=== PATIENT | female | born 1950 | race Two or more races ===

== ENCOUNTER → 2019-05-10 | Outpatient (CLI) | payer MEDICARE ==
[~2019-05-10] MED LIST: BUPIVACAINE MPF 0.5% 10 ML VIAL for KCIC. IJ ONE; IOHEXOL 300 MG/ML 50 ML VIAL. INT ART ONE; LIDOCAINE 1% Multi-Dose 20 ML VIAL. ID ONE; methylPREDNISolone ACETATE 40 MG/ML VIAL. INT ART ONE
--- NOTE | 2019-05-10 16:09 | KCIC ---
PROCEDURE Therapeutic left hip injection using fluoroscopic guidance. HISTORY Chronic left hip pain. Osteoarthritis. TECHNIQUE The procedure was explained to the patient as were potential risks, including infection, bleeding or allergic reaction. All questions were answered. Informed written and verbal consent was obtained. The hip was prepped and draped in the usual sterile manner. Following administration of local anesthetic, a 22-gauge spinal needle was advanced into the hip joint without difficulty, with care taken to avoid the vascular structures. Stylet was removed and following negative aspiration, a mixture of 4 cc Omnipaque-300, 2 cc (80 mg) Depo-Medrol, 4 cc bupivacaine and 4 cc 1% lidocaine were injected without difficulty. Fluoroscopy demonstrates uniform and satisfactory distribution of the injection through the hip. The needle was removed. There was good hemostasis at the injection site. The patient left in stable condition without immediate complication. Patient was advised as to potential postprocedural complications and advised to contact their physician in such event. A single spot image was obtained. FLUOROSCOPY TIME: 44 seconds Electronically signed by: Teodoro Vance MD (05/10/2019 4:06 PM) [facility]
== END | disposition home or self-care (01) ==
LOC: KCIC 12:06
PROVIDERS: ATTEND Orthopaedic Surgery
DX: M16.12 Unilateral primary osteoarthritis, left hip (principal)
CPT/HCPCS: 20610; 77002; J1030; Q9967

== ENCOUNTER → 2019-07-08 | Outpatient (CLI) | payer MEDICARE ==
[~2019-07-08] MED LIST changes: -BUPIVACAINE MPF 0.5% 10 ML VIAL for KCIC. IJ ONE; +IOHEXOL 180 MG/ML 10 ML VIAL. ONE; -IOHEXOL 300 MG/ML 50 ML VIAL. INT ART ONE; -LIDOCAINE 1% Multi-Dose 20 ML VIAL. ID ONE; -methylPREDNISolone ACETATE 40 MG/ML VIAL. INT ART ONE
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
== END | disposition home or self-care (01) ==
LOC: PNCL 13:47 → EDSEX 13:47
PROVIDERS: ATTEND Anesthesiology
DX: M16.12 Unilateral primary osteoarthritis, left hip (principal); Z98.890 Other specified postprocedural states; Z79.899 Other long term (current) drug therapy
CPT/HCPCS: 20610; 77002; Q9965

== ENCOUNTER → 2019-08-06 | Outpatient (CLI) | payer MEDICARE ==
[~2019-08-06] MED LIST changes: +BUPIVACAINE MPF 0.5% 10 ML VIAL. IJ ONE; -IOHEXOL 180 MG/ML 10 ML VIAL. ONE; +IOHEXOL 300 MG/ML 50 ML VIAL. IJ ONE; +methylPREDNISolone ACETATE 80 MG/ML VIAL. INJ ONE
--- NOTE | 2019-08-06 15:40 | RAD ---
Left hip injection under fluoroscopic guidance. INDICATION: Osteoarthritis of the left hip. TECHNIQUE: Informed consent was obtained and an appropriate procedural pause observed. Using standard sterile technique, fluoroscopic imaging guidance and local anesthesia, a cocktail of 20 mL bupivacaine, 1 mL Depo-Medrol 80 mg, and 1 mL of 1 percent lidocaine was injected into the left hip joint from an anterior approach after appropriate needle tip placement using 0.2 mL of Omnipaque 300 was confirmed. Patient did exhibit radiographic evidence of advanced left hip degenerative osteoarthrosis. Total fluoroscopy time was 0.4 minutes. 5 images were acquired for procedural documentation. The needle was removed and puncture site dressed. Postprocedure structures reviewed the patient discharged in stable condition to follow up with his referring physician. IMPRESSION: Successful left hip injection with local anesthesia as described under fluoroscopic imaging guidance. Electronically signed by: Tiffanie Munoz MD (08/06/2019 3:37 PM) [id number]
== END | disposition home or self-care (01) ==
LOC: RAD 12:52
PROVIDERS: ATTEND Orthopaedic Surgery
DX: M16.12 Unilateral primary osteoarthritis, left hip (principal)
CPT/HCPCS: 20610; 77002; J1040; J3490; Q9967

== ENCOUNTER → 2019-09-29 | Outpatient (CLI) | payer MEDICARE ==
[~2019-09-29] MED LIST changes: +BUPIVACAINE MPF 0.25% 10 ML VIAL. ONE; -BUPIVACAINE MPF 0.5% 10 ML VIAL. IJ ONE; +IOHEXOL 180 MG/ML 10 ML VIAL. ONE; -IOHEXOL 300 MG/ML 50 ML VIAL. IJ ONE; +methylPREDNISolone ACETATE 40 MG/ML VIAL. ONE; -methylPREDNISolone ACETATE 80 MG/ML VIAL. INJ ONE; +methylPREDNISolone ACETATE 80 MG/ML VIAL. ONE
--- NOTE | 2019-09-29 09:36 | PAIN ---
DATE OF SERVICE: 09/29/2019 PROGRESS NOTE FOR PAIN CLINIC DIAGNOSIS: Left hip joint pain with primary osteoarthritis. HISTORY OF PRESENT ILLNESS: The patient is a 69-year-old male, who returns for followup status post previous injection with Durolane in the left hip, which helped probably about 20%. The patient reports still significant pain in the left hip with walking, standing, putting all his weight on his left thigh such as stepping on stairs or climbing up on a step. The patient reports still significant pain in the left hip radiating to the left groin and anterior thigh at times with weightbearing, better with sitting or lying down, does not awaken him from sleep at night. The patient reports pain is a 4 on a scale of 10 at its worst in the past week, 3 on an average, 2 at its least and is a 3 today. The patient reports it is dull and aching, sometimes sharp with walking, but with resting, it is generally just a dull pain. The patient is walking with a significant limp favoring the left lower extremity, but the patient reports no significant increase in pain over that at baseline. PHYSICAL EXAMINATION: VITAL SIGNS: The patient's blood pressure is 110/77, pulse 77, respirations are 18, temperature 98.4 degrees Fahrenheit, height 5 feet 6 inches, weight is 129 pounds. GENERAL: The patient is awake, alert, oriented, appropriate, very pleasant demeanor. HEENT: Shows normocephalic, atraumatic. Extraocular movements are intact and symmetrical. Oral cavity: Mucous membranes moist and pink; dentition is intact. NECK: Shows anterior throat supple without palpable lymphadenopathy noted. Swallow reflex symmetrical. CHEST: Shows normal on inspection. Breath sounds are clear bilaterally. HEART: Shows S1, S2 clear. No murmurs auscultated. ABDOMEN: Soft, nontender and nondistended. BACK: Shows spine grossly in the midline, slight increase in thoracic kyphosis and minor flattening of lumbar lordotic curvature. The patient shows good rotational motion of lumbar spine, both laterally as well as extension and flexion without significant difficulty. No significant tenderness with palpation on the symmetrical-appearing lumbar paraspinous musculature bilaterally. EXTREMITIES: Lower extremities show deep tendon reflexes at 2+ in the patellar and 1+ in the tendo-calcaneus tendons. Motor exam is approximately 4 on a scale of 5 with left quadriceps and hamstring flexion and 5/5 on the right. The patient does have a positive Nathaniel's maneuver with external rotation of the left hip compared to the right and posterior displacement with some moderate pain in the groin itself. Peripheral pulses are 1+ posterior tibial. No peripheral edema bilaterally. Options were discussed with the patient. The patient's old chart was reviewed as his current medication regimen updated. Current review of systems updated today as well. We will proceed with a left intraarticular hip joint injection with corticosteroid today. Risks were discussed including but not limited to bleeding, infection, possibility of intravascular injection sequelae, spread of local anesthetic and numbness, side effects of steroid medication, exposure to fluoroscopy and poor results regarding pain control. The patient understands and wished to proceed. The patient will return to the clinic in approximately 1 month for followup. He was counseled on return appointment, activity level and side effects to be aware of. DIAGNOSIS: Left hip joint pain with primary osteoarthritis, left hip joint. PROCEDURE: Left intra-articular hip joint injection using C-arm fluoroscopic guidance under sterile prep and drape using local anesthetic. MEDICATIONS INJECTED: A total of 80 mg of Depo-Medrol plus 3 mL of 0.25% bupivacaine and 2 mL of contrast. CONDITION AT DISCHARGE: Stable. The patient tolerated the procedure well, had no complications. SOFYA HUYNH MD DR: BIJAL/lucía JOB#: [id number] / [id number]
== END ==
LOC: PNCL 08:20
PROVIDERS: ATTEND Anesthesiology
DX: M16.12 Unilateral primary osteoarthritis, left hip (principal)
CPT/HCPCS: 20610; 77002; J1040; J3490; Q9965; J1030